=== PATIENT | female | born 1965 | race Two or more races ===

== ENCOUNTER 2017-06-27 13:12 | Outpatient (CLI) ==
[2015-01-02 19:57] VITALS: BMI 30.4
[2017-06-27 13:44] LABS: BASOPHILS % (AUTO) 0.5 % (0.0-3.0); EOSINOPHILS # (AUTO) 0.1 K/ul (0.0-0.7); EOSINOPHILS % (AUTO) 1.3 % (0.0-7.0); HEMATOCRIT 38.2 % (37.0-47.0); IMMATURE GRANULOCYTE % (AUTO) 0.4 % (0.0-5.0); IMMATURE RETIC FRACTION 7.3; LYMPHOCYTES # (AUTO) 1.8 K/uL (0.60-3.4); LYMPHOCYTES % (AUTO) 31.5 (10.0-50.0); MEAN CORPUSCULAR HEMOGLOBIN 30.5 pg (27.0-31.0); MEAN CORPUSCULAR VOLUME 89.7 fl (81.0-99.0); MONOCYTES # (AUTO) 0.3 K/uL (0.4-2.0); MONOCYTES % (AUTO) 4.9 (0-10); NEUTROPHILS # (AUTO) 3.4 K/ul (2.0-6.9); NEUTROPHILS % (AUTO) 61.4; PLATELET COUNT 342 10^3/uL (140-440); RED BLOOD COUNT 4.26 10^6/ul (4.20-5.40); RETICULOCYTE % 1.88 %; WHITE BLOOD COUNT 5.56 K/ul (4.6-10.2)
[2017-06-27 15:15] LABS: ALBUMIN 4.1 g/dL (3.4-5.0); ALBUMIN/GLOBULIN RATIO 1.11; ANION GAP 12.8; BILIRUBIN,TOTAL 0.37 mg/dL (0.00-1.20); BUN/CREATININE RATIO 15.47; CALCIUM 9.7 mg/dL (8.2-10.2); CHOL/HDL RATIO 5.2 (4.5-5.5); CREATININE 0.84 mg/dL (0.60-1.30); FERRITIN 54.74 ng/mL (4.63-204.00); FOLATE 12.3 ng/mL (3.1-20.5); POTASSIUM 3.8 mmol/L (3.5-5.10); TOTAL PROTEIN 7.8 g/dL (6.4-8.2)
== END 2017-06-27 13:13 | disposition home or self-care (01) ==
LOC: LAB 13:12
PROVIDERS: ATTEND Nurse Practitioner Family
DX: N92.6 Irregular menstruation, unspecified (principal); R42 Dizziness and giddiness
CPT/HCPCS: 36415; 80053; 80061; 82607; 82728; 82746; 83540; 83550; 84443; 84466; 85025; 85045

== ENCOUNTER 2017-07-04 12:54 | Outpatient (CLI) ==
[2015-01-02 19:57] VITALS: BMI 30.4
--- NOTE | 2017-07-05 08:45 | MAMMO ---
EXAM: Digital screening mammogram HISTORY: Screening COMPARISON: 06/23/2014 FINDINGS: Digital MLO and CC views of the right and left breast were performed. Computer aided de tection was utilized. There are scattered fibroglandular densities. There is no evidence for mass, asymmetry, distortion, or suspicious calcifications in either breast. IMPRESSION: 1. No evidence of malignancy in the right or left breast. 2. Annual screening mammogram is recommended in one year. BIRADS category 1, negative examination
== END 2017-07-04 12:55 | disposition home or self-care (01) ==
LOC: RAD 12:54
PROVIDERS: ATTEND Nurse Practitioner Family
DX: Z12.31 Encounter for screening mammogram for malignant neoplasm of breast (principal)
CPT/HCPCS: 77067

== ENCOUNTER 2017-07-17 11:58 | Emergency (ER) ==
[2017-07-17 12:04] VITALS: BP 131/89; TEMP 98.5; BMI 31.1
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
[2017-07-17] MEDS ORDERED: BOOSTRIX IM ONE (14:16)
== END 2017-07-17 14:50 | disposition home or self-care (01) ==
LOC: ED 11:58
DX: S00.33XA Contusion of nose, initial encounter (principal); S86.912A Strain of unspecified muscle(s) and tendon(s) at lower leg level, left leg, initial encounter; S00.31XA Abrasion of nose, initial encounter; S80.212A Abrasion, left knee, initial encounter; S40.011A Contusion of right shoulder, initial encounter; M79.652 Pain in left thigh; V19.9XXA Pedal cyclist (driver) (passenger) injured in unspecified traffic accident, initial encounter
CPT/HCPCS: 90471; 90715; 99283

== ENCOUNTER 2017-07-24 11:14 | Outpatient (CLI) ==
--- NOTE | 2017-07-24 12:46 | DI ---
Exam: Six x-rays of the cervical spine. Comparison: CT performed 01/02/2015. Reason for exam: Cervicalgia. FINDINGS: No acute fracture. The vertebral body heights are well maintained. Multilevel degenerati ve disease is seen with osteophyte formation. The dens is intact on the [place] view. There is mild straightening of the cervical lordotic curve. The prevertebral soft tissues are within normal limits . Impression: No fracture in the cervical spine with mild to moderate degenerative disease. If clinical concern ex ists for radiculopathy or myelopathy, MRI may be performed.
== END 2017-07-24 11:15 | disposition home or self-care (01) ==
LOC: RAD 11:14
PROVIDERS: ATTEND Nurse Practitioner Family
DX: M54.2 Cervicalgia (principal); V19.9XXA Pedal cyclist (driver) (passenger) injured in unspecified traffic accident, initial encounter

== ENCOUNTER 2017-08-21 09:24 | Outpatient (CLI) ==
[2017-08-21 09:57] LABS: ALBUMIN 3.5 g/dL (3.4-5.0); ALBUMIN/GLOBULIN RATIO 0.88; ANION GAP 9.3; BILIRUBIN,TOTAL 0.25 mg/dL (0.00-1.20); BUN/CREATININE RATIO 16.66; CALCIUM 9.2 mg/dL (8.2-10.2); CHOL/HDL RATIO 3.8 (4.5-5.5); CREATININE 0.78 mg/dL (0.60-1.30); POTASSIUM 4.3 mmol/L (3.5-5.10); TOTAL PROTEIN 7.5 g/dL (6.4-8.2)
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
== END 2017-08-21 09:25 | disposition home or self-care (01) ==
LOC: RAD 09:24
PROVIDERS: ATTEND Nurse Practitioner Family
DX: R10.9 Unspecified abdominal pain (principal); R10.814 Left lower quadrant abdominal tenderness; E78.5 Hyperlipidemia, unspecified
CPT/HCPCS: 36415; 80053; 80061

== ENCOUNTER 2017-12-14 09:04 | Outpatient (CLI) | END 2017-12-14 09:05 | disposition home or self-care (01) | LOC: LAB 09:04 | PROVIDERS: ATTEND Nurse Practitioner Family | DX: N93.9 Abnormal uterine and vaginal bleeding, unspecified (principal); E78.5 Hyperlipidemia, unspecified | CPT/HCPCS: 36415; 80053; 80061; 84443; 85025 ==

== ENCOUNTER 2017-12-20 20:19 | Emergency (ER) ==
[2017-12-20 20:24] VITALS: BP 135/79; TEMP 98.7; BMI 31.6
--- NOTE | 2017-12-20 20:35 | ED.PDOC ---
General ED Provider: Dr. RICHARDSON LION-ER Chief Complaint: Fall Stated Complaint: i hurt my ankle this am Time Seen by Physician: 20:25 Mode of Arrival: Walk-In Information Source: Patient Exam Limitations: No limitations [facility] Nursing and Triage Documentation Reviewed and Agree: Yes Reviewed sepsis parameters & appropriate labs ordered?: Yes System Inflammatory Response Syndrome: Not Applicable Sepsis Protocol: For patient's 13 years and over: Temp is 96.8 and below OR 101 and greater Pulse >90 BPM Resp >20/minute Acutely Altered Mental Status Are patient's symptoms suggestive of a new infection, such as: -Pneumonia -Skin, Soft Tissue -Endocarditis -UTI -Bone, Joint Infection -Implantable Device -Acute Abdominal Infection -Wound Infection -Meningitis -Blood Stream Catheter Infection -Unknown Musculoskeletal Complaint Exam - Ankle/Foot Complaint/Exam Location of Injury: Reports: Left, Ankle Mechanism of Injury: Reports: Trauma Onset/Duration: 12 hrs Symptoms Are: Reports: Still present Onset of Pain: Reports: Immediate Initial Severity: Mild Current Severity: Mild Location: Reports: Discrete Character: Reports: Dull, Aching Aggravating: Reports: Movement, Weight bearing Able to Bear Weight: Yes Associated Signs and Symptoms: Reports: Swelling, Bruising. Denies: Redness, Fever, Weakness, Numbness, Tingling Lower Extremity Findings: Present: Swelling, Tenderness. Absent: Ecchymosis, Limited range of motion Achilles Tendon Abnormality: No Tenderness: Present: Lateral malleolus Limited Range of Motion: Present: Inversion, Eversion Differential Diagnosis: Closed Fracture, Sprain, Strain, Tendonitis Review of Systems - Review Of Systems Constitutional: Reports: No symptoms Eyes: Reports: No symptoms Ears, Nose, Mouth, Throat: Reports: No symptoms Respiratory: Reports: No symptoms Cardiac: Reports: No symptoms GI: Reports: No symptoms : Reports: No symptoms Musculoskeletal: Reports: Joint pain, Joint swelling Skin: Reports: No symptoms Neurological: Reports: No symptoms Endocrine: Reports: No symptoms Hematologic/Lymphatic: Reports: No symptoms All Other Systems: Reviewed and Negative Past Medical History - Past Medical History Previously Healthy: Yes Endocrine: Reports: Dyslipidemia Cardiovascular: Reports: None Respiratory: Reports: None Hematological: Reports: None Gastrointestinal: Reports: None Genitourinary: Reports: None Neuro/Psych: Reports: None Musculoskeletal: Reports: None Cancer: Reports: None Last Menstrual Period: 11-23-17 - Surgical History General Surgical History: Reports: None - Family History Family History: Reports: Unknown - Social History Smoking Status: Never smoker Hx Substance Use: No Alcohol Screening: None Lives: With family - Immunizations Tetanus Shot up to Date: Yes Influenza Vaccine within 12 Months: No Pneumococcal Vaccine up to Date: No Physical Exam - Physical Exam Appearance: Well-appearing, No pain distress, Well-nourished Pain Distress: Moderate Eyes: GABY, EOMI, Conjunctiva clear ENT: Ears normal, Nose normal, Oropharynx normal Neck: Supple Respiratory: Airway patent Cardiovascular: RRR, Pulses normal, No rub, No murmur GI/: Soft, Nontender, No masses, Bowel sounds normal, No Organomegaly Musculoskeletal: Limited ROM Skin: Warm Neurological: Sensation intact Psychiatric: Affect appropriate, Mood appropriate Interpretation - Radiology Interpretation Radiology Interpretation By: ED Physician Radiology Results: Negative Critical Care Note - Critical Care Note Total Time (mins): 0 Course - Course Orders, Labs, Meds: Orders Category Date Time Status ANKLE, LEFT MIN 3 VIEWS Stat RADS 12/20/17 20:21 Taken Vital Signs: Temp Pulse Resp BP Pulse Ox 12/20/17 20:21 98.7 F 60 18 135/79 98 Departure - Departure Time of Disposition: 21:05 Disposition: HOME SELF-CARE Discharge Problem: Ankle pain Qualifiers: Chronicity: acute Laterality: unspecified laterality Qualified Code(s): M25.579 - Pain in unspecified ankle and joints of unspecified foot Instructions: Ankle Sprain (ED) Condition: Good Pt referred to PMD for follow-up: No IPMP verified?: No Additional Instructions: stay in splint, brendan and use crutches--nonweightbearing--tylenol #3 q 6hrs prn pain #10---ice--f/u with pcp next week Allergies/Adverse Reactions: Allergies No Known Allergies Allergy (Verified 12/20/17 20:28) Disposition Discussed With: Patient, Family
--- NOTE | 2017-12-20 21:17 | DI ---
EXAM: Left ankle three views HISTORY: Injury COMPARISON: None. FINDINGS: The ankle mortise and talar dome are intact. There is no acute fracture or dislocation.. There is a small retro and plantar calcaneal spur. The surrounding soft tissues are unremarkable IMPRESSION: No acute findings
== END 2017-12-20 21:18 | disposition home or self-care (01) ==
LOC: ED 20:19
DX: M25.572 Pain in left ankle and joints of left foot (principal); W19.XXXA Unspecified fall, initial encounter
CPT/HCPCS: 99282

== ENCOUNTER 2018-06-19 14:01 | Outpatient (CLI) | END 2018-06-19 14:02 | disposition home or self-care (01) | LOC: RHC-LAB 14:01 | PROVIDERS: ATTEND Nurse Practitioner Family | DX: D64.9 Anemia, unspecified (principal); N92.0 Excessive and frequent menstruation with regular cycle; E78.5 Hyperlipidemia, unspecified | CPT/HCPCS: 36415; 80053; 80061; 85025 ==

== ENCOUNTER 2018-10-26 | Outpatient (CLI) | END 2018-10-26 09:04 | disposition home or self-care (01) ==

== ENCOUNTER 2018-12-21 08:03 | Outpatient (CLI) | END 2018-12-21 08:04 | disposition home or self-care (01) | LOC: RHC-LAB 08:03 | PROVIDERS: ATTEND Nurse Practitioner Family | DX: D64.9 Anemia, unspecified (principal); E78.5 Hyperlipidemia, unspecified | CPT/HCPCS: 36415; 80053; 80061; 85025 ==

== ENCOUNTER 2019-03-19 09:07 | Outpatient (CLI) | END 2019-03-19 09:08 | disposition home or self-care (01) | LOC: RHC-LAB 09:07 | PROVIDERS: ATTEND Nurse Practitioner Family | DX: E78.5 Hyperlipidemia, unspecified (principal); D64.9 Anemia, unspecified | CPT/HCPCS: 36415; 80053; 80061; 82607; 82728; 82746; 83540; 83550; 84443; 84466; 85025; 85045 ==

== ENCOUNTER 2019-03-26 10:08 | Outpatient (CLI) ==
--- NOTE | 2019-03-27 12:26 | MAMMO ---
EXAM: Digital screening mammogram with tomosynthesis HISTORY: Screening COMPARISON: 07/04/2017 FINDINGS: Digital MLO and CC views of the right and left breast were performed. Tomosynthesis was performed. Computer aided detection utilized. There are scattered fibroglandular densities. There is no evidence for mass, asymmetry, distortion, or suspicious calcifications in either breast. IMPRESSION: 1. No evidence of malignancy in the right or left breast. 2. Annual screening mammogram is recommended in one year. BIRADS category 1, negative examination
== END 2019-03-26 10:09 | disposition home or self-care (01) ==
LOC: RAD 10:08
PROVIDERS: ATTEND Nurse Practitioner Family
DX: Z12.31 Encounter for screening mammogram for malignant neoplasm of breast (principal)